=== PATIENT | female | born 1985 | race Caucasian/White ===

== ENCOUNTER → 2020-07-18 08:56 | Outpatient (CLI) | payer MEDICAID, SELFPAY ==
[2020-07-13 10:50] VITALS: BMI 23.3
--- NOTE | 2020-07-18 08:59 | US_ITS ---
STUDY: ULTRASOUND BREAST - RIGHT REASON FOR EXAM: Female, 34 years old. Palpable lump in the right breast. TECHNIQUE: Axial and longitudinal images of the RIGHT breast were performed with a high resolution ultrasound transducer. # OF IMAGES: 16 COMPARISON: Comparison is made with prior mammogram done earlier in the day. FINDINGS: RIGHT Breast: The upper outer quadrant of the right breast was examined by ultrasound. There is evidence of a 4 mm x 5 mm x 3 mm benign-appearing lymph node at the 10:30 position of the breast at 6 cm from the nipple. US/Breast Limited Unilateral IMPRESSION: Incidental note is made of a 4 mm x 5 mm x 3 mm benign-appearing lymph node at the 10:30 position of the breast at 6 cm from nipple. ASSESSMENT CATEGORY: BIRADS Category 2: Benign. A letter regarding these results will be sent to the patient by the facility within 30 days. Electronically Signed: Julio C Wynn MD at 14:09 EDT , Service support ,
--- NOTE | 2020-07-18 08:59 | BI_ITS ---
MAMMOGRAPHY - BILATERAL DIAGNOSTIC REASON FOR EXAM: Female, 34 years old. Right lateral breast lump. PERTINENT HISTORY: Aunts with breast cancer. TECHNIQUE: Digital bilateral breast patricia (3D mammographic acquisition) in the CC and MLO projections. 2-D mediolateral oblique (MLO) and craniocaudad (CC) views of both breasts were obtained. CAD: Full Field Digital Mammography with Computer Added Detection was performed. COMPARISON: None. Baseline examination. FINDINGS: Breast Composition: The breasts are extremely dense, which lowers the sensitivity of mammography. There are no dominant masses or suspicious calcifications. No other significant abnormalities are identified. BI/DIAG MAMM W/CAD, BILAT IMPRESSION: Negative diagnostic mammogram. With the patient''s history of a palpable lump in the upper lateral aspect of the right breast, correlation with ultrasound is recommended. ASSESSMENT CATEGORY: BIRADS Category 0: Incomplete. Need additional imaging evaluation. A letter regarding these results will be sent to the patient by the facility within 30 days. Approximately 10% of breast cancers are not detected by mammography. A normal mammogram should not delay biopsy of a clinically suspicious abnormality. Electronically Signed: Julio C Wynn MD at 10:26 EDT , Service support ,
== END ==
PROVIDERS: Referring Provider Obstetrics & Gynecology; Visit Provider Obstetrics & Gynecology
DX: N63.10 Unspecified lump in the right breast, unspecified quadrant (principal)
CPT/HCPCS: 76642; 77062; 77066; G0279